=== PATIENT | male | born 1995 | race Caucasian/White ===

== ENCOUNTER → 2025-06-17 06:54 | Outpatient (CLI) | payer OTHER, SELFPAY ==
--- NOTE | 2025-06-17 06:59 | DI.US.S_ITS ---
PROCEDURE: US SOFT TISSUE ABDOMEN INDICATIONS: Sub-dermal cyst-like structure upper RT buttocks TECHNIQUE: Real-time focused scanning was performed of the abdomen, with image documentation. COMPARISON: None. FINDINGS: Complex subcutaneous mass corresponding to the palpable abnormality measuring 1.0 x 1.3 cm. There is moderate posterior acoustic enhancement. No internal vascularity. IMPRESSION: Nonspecific complex subcutaneous mass corresponding to the palpable abnormality measuring up to 1.3 cm. Differential would include both benign and malignant etiologies. Consider dermatology consultation. Dictated by: Rigoberto MARCUS Interpreted: Paige Osborne MD on 06/17/2025 at 9:47 Transcribed by: ANUEL on 06/17/2025 at 9:48 Approved by: Paige Osborne M.D. on 06/18/2025 at 0:50
== END ==
PROVIDERS: Referring Provider Nurse Practitioner Family; Visit Provider Nurse Practitioner Family
DX: D48.5 Neoplasm of uncertain behavior of skin (principal)
CPT/HCPCS: 76705